=== PATIENT | female | born 1940 | race Caucasian/White ===

== ENCOUNTER 2018-11-09 10:53 | Emergency (ER) | payer MEDICARE ==
[~2018-11-09] VITALS: Ht 162.6 cm; Wt 63.3 kg
[~2018-11-09 10:53] MED LIST: ASPIR-LOW81 MG PO; CRESTOR10 MG PO; LISINOPRIL10 MG PO; METFORMIN HCL500 MG PO; PRILOSEC20 MG PO
--- OUTSIDE RECORDS SUMMARY | 2018-11-09 10:56 | XMS REPORT | Clinical Summary ---
Author Author [facility] Organization [facility] Address Unknown Phone Unavailable Care Team Providers Care Systems Architecture Analyst Name Role Phone PCP Unavailable Allergies Not on File Medications Not on file Active Problems Not on file Encounters Care Team Description Date Type Specialty Ashley Henao MD 08/31/2018 Lab Lab after 11/08/2017 Social History Date Tobacco Use Types Packs/Day Years Used Never Assessed Sex Assigned at Date Recorded Not on file Industry Job Start Date Occupation Not on file Not on file Not on file Travel End Travel History Travel Start No recent travel history available. Last Filed Vital Signs Not on file Plan of Treatment Health Maintenance Due Date Last Done Comments SHINGLES VACCINES (#1) 08/01/1991 65+ PNEUMOCOCCAL VACCINE 2006 (1 of 2 - PCV13) INFLUENZA VACCINE 11/29/2018 Procedures Comments Procedure Name Priority Date/Time Associated Diagnosis SURGICAL PATHOLOGY Routine 08/31/2018 REQUEST 3:08 PM CDT after 11/08/2017 Results * Surgical pathology request (08/31/2018 3:08 PM CDT) [facility] DEPARTMENT OF PATHOLOGY AND GENOMIC MEDICINE Surgical See link below for PDF Lab [facility] DEPARTMENT pathology Report OF PATHOLOGY report AND GENOMIC MEDICINE Result status This is Final Report for [facility] DEPARTMENT [id number] OF PATHOLOGY AND GENOMIC MEDICINE Specimen Performing Organization Address City/State/Zipcode Phone Number [facility] DEPARTMENT OF [address] [place] [address] PATHOLOGY AND GENOMIC MEDICINE after 11/08/2017 Insurance Type Payer Benefit Subscriber ID Effective Phone Address Plan / Dates Group HMO [facility] MEDICARE [facility] xxxxxxxxx [id number] MEDICARE resent HMO/PPO Advance Directives Patient has advance care planning documents on file. For more information, bethany farr contact: Dre Gruber [phone] [place] [address]
[2018-11-09] MEDS ORDERED: SODIUM CHLORIDE 0.9% 1000ML 1,000 ML IV SCH (11:30)
--- NOTE | 2018-11-09 12:00 | Diagnostic Imaging Report ---
EXAMINATION: CXR 2 VIEW - HOPD INDICATION: Upper back pain. COMPARISON: None FINDINGS: TUBES and LINES: None. LUNGS: Lungs are well inflated. Lungs are clear. There is no evidence of pneumonia or pulmonary edema. PLEURA: No pleural effusion or pneumothorax. HEART AND MEDIASTINUM: The cardiomediastinal silhouette is unremarkable. Calcified mediastinal lymph nodes, consistent with prior granulomatous disease. BONES AND SOFT TISSUES: No acute osseous abnormality. Visualized vertebral body heights are preserved. UPPER ABDOMEN: No free air under the diaphragm. IMPRESSION: No acute radiographic abnormality. Sequela of prior granulomatous disease. Signed by: Dr. Elgin Sosa MD on 11/09/2018 11:56 AM
[2018-11-09] MEDS ORDERED: SODIUM CHLORIDE 0.9% 1000ML 1,000 ML ONE (12:14)
[2018-11-09] MEDS ORDERED: NAPROSYN500 MG PO (12:45)
[2018-11-09] MEDS ORDERED: SODIUM CHLORIDE 0.9% 50ML 50 ML ONE (13:09)
[2018-11-09] MEDS ORDERED: IOPAMIDOL 370 MG/ML 200 ML INFUS..BTL INJ ONE (13:09)
--- NOTE | 2018-11-09 13:14 | NUR ---
Pt states that she has not taken her BP meds this morning. Her BP in her right arm is 189/92. All other BP's charted were taken in her left arm.
--- NOTE | 2018-11-09 13:57 | Diagnostic Imaging Report ---
EXAM: CT Chest with contrast- Pulmonary Embolism Protocol INDICATION: Chest pain. COMPARISON: Chest radiograph 11/09/2018. TECHNIQUE: Chest was scanned utilizing a multidetector helical scanner from the lung apex through the level of the diaphragm after administration of IV contrast. Thin section reconstructions were obtained with special concentration on the pulmonary arteries. Coronal and sagittal reformations were obtained. Pulmonary embolism protocol was performed. IV CONTRAST: 100 cc of Isovue 370 RADIATION DOSE: Total DLP: 368.7 mGy*cm Dose modulation, iterative reconstruction, and/or weight based adjustment of the mA/kV was utilized to reduce the radiation dose to as low as reasonably achievable. COMPLICATIONS: None FINDINGS: LINES/ TUBES: None. PULMONARY ARTERIES: Exam is limited by poor contrast bolus timing. The segmental and subsegmental pulmonary arteries are not well opacified. No evidence of pulmonary embolism in the main or lobar pulmonary arteries. Main pulmonary artery measures 2.4 cm in diameter. LUNGS AND AIRWAYS: The central airways are patent. Calcified granuloma in the right lower lobe. Dependent patchy atelectasis. Inferior most lung bases are partially excluded from the [id number]. Scattered cysts in the right lower lobe. PLEURA: The pleural spaces are clear. HEART AND MEDIASTINUM: The thyroid gland is normal. Bulky calcified paratracheal and subcarinal lymph nodes. The heart is normal in size.. There is no pericardial effusion. Scattered atherosclerotic calcifications in the coronary arteries and thoracic aorta. UPPER ABDOMEN: Limited contrast-enhanced views of the upper abdomen. Small hiatal hernia. Nonspecific subcentimeter hyperdense focus measuring 4 mm in the right hepatic lobe 5 mm in the left hepatic lobe. Left hepatic lobe hypodense cysts. BONES: No acute osseous abnormality. No suspicious lytic or blastic lesions. SOFT TISSUES: Unremarkable. IMPRESSION: Limited examination secondary to poor contrast bolus timing. The segmental and subsegmental pulmonary arteries are not well opacified. No evidence of pulmonary embolism in the main or lobar pulmonary arteries. Nonspecific two subcentimeter hyperdense foci within the liver. These may represent flash filling hemangiomas or perfusional changes. A followup liver protocol CT or MRI may be considered for further evaluation. Sequela of prior granulomatous disease. Signed by: Dr. Elgin Sosa MD on 11/09/2018 1:54 PM
--- NOTE | 2018-11-09 14:00 | NUR ---
Pt requests a cup of water so that she may take her normal bp medication that she takes in the morning but did not take this morning. Pt is now taking her medication.
[2018-11-09 14:13] VITALS: BP 171/86
== END 2018-11-09 14:21 | disposition home or self-care (01) ==
LOC: FSED 10:53
DX: M54.5 Low back pain (principal); S39.012A Strain of muscle, fascia and tendon of lower back, initial encounter; S29.012A Strain of muscle and tendon of back wall of thorax, initial encounter; Y93.H2 Activity, gardening and landscaping; Y92.008 Other place in unspecified non-institutional (private) residence as the place of occurrence of the external cause; I10 Essential (primary) hypertension; R94.31 Abnormal electrocardiogram [ECG] [EKG]; E11.9 Type 2 diabetes mellitus without complications; I25.10 Atherosclerotic heart disease of native coronary artery without angina pectoris; Z86.718 Personal history of other venous thrombosis and embolism
CPT/HCPCS: 71046; 71260; 80053; 81003; 82553; 84484; 85025; 85379; 93005; 99284; J7030; Q9967

== ENCOUNTER → 2024-08-20 | Outpatient (REF) | payer MEDICARE ==
[~2024-08-20] MED LIST changes: +NAPROSYN500 MG PO
== END ==
LOC: US 10:53
PROVIDERS: ATTEND Family Medicine
DX: R59.0 Localized enlarged lymph nodes (principal)

== ENCOUNTER → 2024-08-28 | Outpatient (REF) | payer MEDICARE | LOC: MAMMO 09:52 | PROVIDERS: ATTEND Family Medicine | DX: R59.0 Localized enlarged lymph nodes (principal) | CPT/HCPCS: 77066 ==